=== PATIENT | female | born 1985 | race Caucasian/White ===

== ENCOUNTER → 2020-06-18 | Outpatient (CLI) | payer OTHER | END | disposition home or self-care (01) | LOC: RX STUDY 08:14 | PROVIDERS: ATTEND Obstetrics & Gynecology | DX: N97.8 Female infertility of other origin (principal) ==

== ENCOUNTER 2023-03-31 12:19 | Outpatient (CLI) | payer OTHER | END 2023-03-31 12:59 | disposition home or self-care (01) | LOC: NST 12:19 | PROVIDERS: ATTEND Obstetrics & Gynecology Maternal & Fetal Medicine | DX: Z34.83 Encounter for supervision of other normal pregnancy, third trimester (principal) ==

== ENCOUNTER 2024-04-11 13:47 | Outpatient (CLI) | payer OTHER | END 2024-04-11 13:55 | disposition home or self-care (01) | LOC: SONOGRAMA 13:47 | PROVIDERS: ATTEND Dermatology | DX: E06.3 Autoimmune thyroiditis (principal) ==

== ENCOUNTER 2025-09-17 10:40 | Outpatient (CLI) | payer OTHER | END 2025-09-17 16:17 | disposition home or self-care (01) | LOC: TOM 10:40 | PROVIDERS: ATTEND Dermatology | DX: N70.11 Chronic salpingitis (principal) ==